=== PATIENT | female | born 1990 | race Caucasian/White ===

== ENCOUNTER 2022-08-05 09:18 | Emergency (ER) | payer BC, SELFPAY ==
--- NOTE | 2022-08-05 09:20 | ED.URI ---
HPI - URI/Sore Throat General Chief Complaint: Upper Respiratory Infection Stated Complaint: uri Time Seen by Provider: 08/05/22 09:20 Source: patient Mode of arrival: ambulatory Limitations: no limitations History of Present Illness HPI Narrative: Natalie is a 31-year-old female patient presenting to clinic today with complaints of cold symptoms X1 week. She reports she has had cough and congestion for the past week. Reports that she has had some productive cough with yellow phlegm for the past 2 days. She denies any fever or chills. MD elicited complaint: cough and nasal congestion Related Data Home Medications Medication Instructions Recorded Confirmed levothyroxine 175 mcg capsule 175 mcg PO DAILY 03/24/20 08/05/22 (Tirosint) sertraline 50 mg tablet 50 mg PO DAILY 03/24/20 08/05/22 phentermine 15 mg capsule mg 08/05/22 Allergies Allergy/AdvReac Type Severity Reaction Status Date / Time No Known Allergies Allergy Verified 08/05/22 09:22 Review of Systems Review of Systems: Pertinent positives per HPI. Patient denies any fever, chills, rash, headache, visual changes, dizziness, cough, shortness of breath, chest pain, palpitations, nausea, vomiting, diarrhea, constipation, abdominal pain, or any urinary issues. COUNTS INCLUDE 234 BEDS AT THE [facility] Past Medical History Medical History Allergies ALFREDO positive Anxiety Depression Inflammatory arthritis Irritable bowel syndrome Surgical History Surgical History H/O section History of tonsillectomy Social History Social History Smoking status: Never smoker Second hand tobacco smoke exposure: Yes Alcohol intake: never Substance use: never Gender identity (if verbalized by the patient): Female Comments At the time of my signature, I reviewed and agree with the nursing past medical, surgical, social, and family history. There is no relevant family history pertinent to the patient complaint. Exam Narrative: General: Well-developed, well nourished, in no apparent distress Head: Normocephalic, atraumatic Eyes: Pupils equally round and reactive to light bilaterally, EOM intact, sclera and conjunctive clear, no discharge, lids normal Ears: TMs intact and clear, ear canals clear, no drainage, grossly hearing normal. Nose: Nares patent, clear nasal discharge, no inflammation, no sinus tenderness. Mouth: Oral pharynx without lesions or masses, good dentition, MMM. postnasal drip Neck: Supple, trachea midline, no enlargement of anterior or posterior cervical nodes, no thyroid masses or goiter palpable. Cardio: Regular rate and rhythm, s1 and s2 normal, no murmur appreciated. Resp: Clear to auscultation bilaterally, no rhonchi, rales, wheezing or rubs Course Course Emergency Course: Portions of this record may have been created with voice recognition software. Level of Care: Express Care Visit Vital Signs Vital signs: Vital Signs Temperature 37.2 C 08/05/22 09:36 Pulse Rate 90 08/05/22 09:36 Respiratory Rate 16 08/05/22 09:36 Blood Pressure 111/78 08/05/22 09:36 Pulse Oximetry 99 08/05/22 09:36 Oxygen Delivery Room Air 08/05/22 09:36 Temperature 37.2 C 08/05/22 09:36 Pulse Rate 90 08/05/22 09:36 Respiratory Rate 16 08/05/22 09:36 Blood Pressure 111/78 08/05/22 09:36 Pulse Oximetry 99 08/05/22 09:36 Oxygen Delivery Room Air 08/05/22 09:36 Vital signs reviewed MDM - URI/Sore Throat MDM Narrative Medical decision making narrative: At the time of visit patient is resting comfortably on exam table. I suspect the patient has an upper respiratory infection. Prescription for prednisone was sent to the pharmacy to help with the cough and congestion. Supportive measures were discussed with the patient she voiced understanding o
[2022-08-05 09:36] VITALS: BP 111/78; PULSE 90; RESP 16; TEMP 37.2; O2SAT 99
== END 2022-08-05 09:47 | disposition home or self-care (01) ==
PROVIDERS: Emergency Provider Nurse Practitioner Family; PCP Registered Nurse
DX: J06.9 Acute upper respiratory infection, unspecified (principal)
CPT/HCPCS: 99213; G0463

== ENCOUNTER → 2022-09-07 14:39 | Outpatient (CLI) | payer BC, SELFPAY ==
--- NOTE | ~2022-09-07 | US_ITS ---
EXAMINATION: US thyroid DATE: 09/07/2022 14:52 INDICATION: Nontoxic goiter. TECHNIQUE: Multiple ultrasound images of the thyroid were obtained. COMPARISON: None. FINDINGS: The right thyroid lobe measures 4.1 x 1.1 x 1.3 cm. The left thyroid lobe measures 3.3 x 1.1 x 0.9 c m. There is normal echotexture and echogenicity throughout the thyroid gland. No discrete nodules id entified. Normal vascular flow is present. IMPRESSION: 1. Unremarkable thyroid ultrasound findings. Reviewed, dictated and finalized at location [facility]
== END ==
PROVIDERS: PCP Registered Nurse; Visit Provider Nurse Practitioner
DX: E04.9 Nontoxic goiter, unspecified (principal)
CPT/HCPCS: 76536

== ENCOUNTER 2023-09-02 12:16 | Emergency (ER) | payer BC, SELFPAY ==
[2023-09-02 13:00] VITALS: BP 130/76; PULSE 81; RESP 16; TEMP 37.7; O2SAT 99
--- NOTE | 2023-09-02 13:59 | ED.URI ---
HPI - URI/Sore Throat General Chief Complaint: Upper Respiratory Infection Stated Complaint: Ears Irritation/Cough Time Seen by Provider: 09/02/23 13:59 Source: patient and RN notes reviewed Mode of arrival: ambulatory Limitations: no limitations History of Present Illness HPI Narrative: 33-year-old female presents concern for one-week history of body aches, ear pain, sore throat. She reports cough. Reports she has taken [id number] medications without relief. She reports exposure to mold MD elicited complaint: cough and sore throat Related Data Home Medications Medication Instructions Recorded Confirmed sertraline 50 mg tablet 100 mg PO DAILY 03/24/20 08/05/22 levothyroxine 75 mcg capsule mcg PO 09/02/23 09/02/23 (Tirosint) Allergies Allergy/AdvReac Type Severity Reaction Status Date / Time mold Allergy Other Verified 09/02/23 13:22 Review of Systems Review of Systems: CONSTITUTIONAL: Denies malaise, chills, sweats, or fever. EYES: Denies visual changes, redness, or discharge. ENT: Reports rhinorrhea, congestion, otalgia and sore throat. CARDIOVASCULAR: Denies chest pain, palpitations, or edema. RESPIRATORY: Reports cough. Denies dyspnea. GASTROINTESTINAL: Denies abdominal pain, nausea, vomiting, diarrhea SKIN: Denies rash or itching. MUSCULOSKELETAL: Denies myalgia. NEUROLOGIC: Denies headache. All systems reviewed & are unremarkable except as noted in HPI and below PMFSH Past Medical History Medical History (Updated 09/02/23 @ 14:03 by Graciela Acevedo NP) Allergies ALFREDO positive Anxiety Depression Inflammatory arthritis Irritable bowel syndrome Surgical History Surgical History H/O section History of tonsillectomy Social History Social History Smoking status: Never smoker Second hand tobacco smoke exposure: Yes Alcohol intake: never Substance use: never Gender identity (if verbalized by the patient): Female Comments At time of signature, agree with nursing past medical, surgical, social and family history. There is no relevant family history pertinent to the presenting complaint Exam Narrative: GENERAL: Well-appearing, well-nourished, and in no acute distress. HEAD: Normocephalic EYES: PERRLA, conjunctivae clear ENT: Nares clear, turbinates edematous and erythematous, clear discharge. Mucous membranes moist. TM pearly lemon with dull light reflex bilaterally; no tragal tenderness. Oropharynx not erythematous without lesions. Tonsils not enlarged and without exudate, no drooling, no hoarseness, no trismus, uvula midline. NECK: Supple. No lymphadenopathy CHEST: Clear to auscultation, breath sounds equal. No wheezing, rhonchi, rales, or stridor. No respiratory distress, speaks in full sentences. HEART: Regular rate and rhythm. No murmur heard. SKIN: Warm, dry, no rash. NEURO: Alert and oriented x3. PSYCH: Normal mood and affect Course Course Emergency Course: Patient is aware of diagnosis, understands and agrees to treatment plan. Anticipatory guidance given. Patient agrees to follow-up as directed and is aware of reasons to seek care at the emergency department. Portions of this record may have been created with voice recognition software Level of Care: Express Care Visit Vital Signs Vital signs: Vital Signs Temperature 100 F H 09/02/23 13:00 Pulse Rate 81 09/02/23 13:00 Respiratory Rate 16 09/02/23 13:00 Blood Pressure 130/76 09/02/23 13:00 Pulse Oximetry 99 09/02/23 13:00 Oxygen Delivery Room Air 09/02/23 13:00 Temperature 100 F H 09/02/23 13:00 Pulse Rate 81 09/02/23 13:00 Respiratory Rate 16 09/02/23 13:00 Blood Pressure 130/76 09/02/23 13:00 Pulse Oximetry 99 09/02/23 13:00 Oxygen Delivery Room Air 09/02/23 13:00 Reviewed. MDM - URI/Sore Throat MDM Narrative Medical decision ma
== END 2023-09-02 14:08 | disposition home or self-care (01) ==
PROVIDERS: Emergency Provider Nurse Practitioner; PCP Registered Nurse
DX: H66.93 Otitis media, unspecified, bilateral (principal); Z20.822 Contact with and (suspected) exposure to COVID-19; M13.80 Other specified arthritis, unspecified site; F41.9 Anxiety disorder, unspecified; F32.A Depression, unspecified
CPT/HCPCS: 87426; 87804; 99213; C9803; G0463